=== PATIENT | female | born 1945 | race Hispanic/Latino ===

== ENCOUNTER → 2024-01-22 | Outpatient (CLI) | payer MEDICARE | END | disposition home or self-care (01) | LOC: SHCH 10:46 | PROVIDERS: ATTEND Student in an Organized Health Care Education/Training Program | DX: Z01.810 Encounter for preprocedural cardiovascular examination (principal); I87.2 Venous insufficiency (chronic) (peripheral); I10 Essential (primary) hypertension; E11.9 Type 2 diabetes mellitus without complications; E78.5 Hyperlipidemia, unspecified; Z79.899 Other long term (current) drug therapy | CPT/HCPCS: 93970 ==

== ENCOUNTER → 2024-01-24 | Outpatient (CLI) | payer MEDICARE | END | disposition home or self-care (01) | LOC: SHCH 12:50 | PROVIDERS: ATTEND Student in an Organized Health Care Education/Training Program | DX: I51.7 Cardiomegaly (principal); I48.0 Paroxysmal atrial fibrillation | CPT/HCPCS: 93306 ==